=== PATIENT | female | born 1935 | race Caucasian/White ===

== ENCOUNTER → 2024-05-07 | Outpatient (CLI) | payer OTHER, MEDICAID, SELFPAY ==
[2024-05-07 12:38] LABS: Collection Type, Urine Clean Catch
[2024-05-07 13:26] LABS: Bacteria,Urine 1+; Bilirubin,Urine Negative (Negative); Blood,Urine Negative (Negative); Budding Yeast,Urine Present; Clarity,Urine Clear (Clear/Hazy); Color,Urine Lt-Yellow (Lt Yel-Yel); Glucose, Urine Negative (Negative); Hyphae Yeast Present; Ketones,Urine Negative (Negative); Leukocyte Esterase,Urine Positive (Negative); Nitrite,Urine Negative (Negative); PH,Urine 6.5 (5.0-7.0); Protein,Urine 2+ (Neg - Trace); RBC,Urine 4 /hpf (0-3); Specific Gravity,Urine 1.007 (1.001-1.035); Squamous Epithelial Cell,Urine 8 /hpf (0-5); Transitional Epi Cells,Urine < 1 /hpf (0-5); Urobilinogen,Urine Negative mg/dL (0.0-1.0); WBC,Urine 2 /hpf (0-5)
== END | disposition home or self-care (01) ==
LOC: SLDO 12:27
PROVIDERS: PCP Family Medicine; Referring Provider Family Medicine; Visit Provider Family Medicine
DX: R30.0 Dysuria (principal)
CPT/HCPCS: 81001; 87086

== ENCOUNTER → 2024-06-16 | Outpatient (CLI) | payer OTHER, MEDICAID, SELFPAY ==
[2024-06-16 12:06] LABS: Collection Type, Urine Clean Catch
[2024-06-16 13:28] LABS: Bilirubin,Urine Negative (Negative); Blood,Urine 1+ (Negative); Clarity,Urine Clear (Clear/Hazy); Color,Urine Lt-Yellow (Lt Yel-Yel); Glucose, Urine Negative (Negative); Ketones,Urine Negative (Negative); Leukocyte Esterase,Urine Positive (Negative); Nitrite,Urine Negative (Negative); PH,Urine 6.5 (5.0-7.0); Protein,Urine 3+ (Neg - Trace); RBC,Urine 6 /hpf (0-3); Specific Gravity,Urine 1.012 (1.001-1.035); Squamous Epithelial Cell,Urine 2 /hpf (0-5); Urobilinogen,Urine Negative mg/dL (0.0-1.0); WBC,Urine 20 /hpf (0-5)
== END | disposition home or self-care (01) ==
LOC: SLDO 11:56
PROVIDERS: Referring Provider Family Medicine; Visit Provider Family Medicine
DX: N30.00 Acute cystitis without hematuria (principal)
CPT/HCPCS: 81001; 87086

== ENCOUNTER 2024-06-17 11:13 | Emergency (ER) | payer OTHER, SELFPAY ==
--- NOTE | 2024-06-17 12:17 | XR_ITS ---
Examination: CT brain head without contrast. 2-D sagittal coronal reconstructions Date and time of exam:June 17, 2024 1238 hours INDICATIONS: Patient fell today with injury to the head, head pain neck pain CTDI: vol (mGy):47.1 DLP: (mGycm):962 Technique: Multiple CT axial sections of the brain have been obtained, 5 mm slice thickness. Contrast has not been administered. 2-D sagittal, coronal reconstructions have been obtained Low dose protocols were performed. One or more of the following dose reduction techniques were used; automated exposure control, adjustment of the mA and/or KV according to patient size, use of iterative reconstruction technique. Findings: No significant ventricular enlargement. 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 No mass effect or midline shift Basal cisterns are not remarkable. Fourth ventricle is midline. Cranial vault intact. Impression: Negative for acute hemorrhage, mass effect or midline shift
--- NOTE | 2024-06-17 12:17 | XR_ITS ---
Examination: CT cervical spine without contrast 2-D sagittal reconstructions 2-D coronal reconstructions 3-D reconstructions. Exam date and time:June 17, 2024 1238 hours INDICATIONS: Patient fell today with injury to the neck, neck pain CTDI:vol (mGy) 7.79 DLP: (mGycm) 168 Technique: Multiple 2 mm axial sections of the cervical spine have been obtained. The coronal and sagittal reconstructions have been obtained. 3-D reconstructions have been obtained. Low dose protocols were performed. One or more of the following dose reduction techniques were used; automated exposure control, adjustment of the mA and/or KV according to patient size, use of iterative reconstruction technique. Findings: Axial sections demonstrate intact base of the skull. C1 exhibit satisfactory relationship to the odontoid. No acute cervical vertebral body fracture seen. Alignment posterior spinous processes satisfactory. Impression: No acute cervical fracture.
--- NOTE | 2024-06-17 12:18 | XR_ITS ---
Examination: CT chest, without intravenous contrast. Sagittal and coronal 2-D reconstructions. Exam date and time: June 17, 2019 0545 hours Comparison December 05, 2017 INDICATIONS: Patient fell today with into the left chest, left-sided rib pain CTDI:vol (mGy) 14.3 DLP: (mGycm) 504 Technique: Multiple 3.0 mm axial sections of the chest to been obtained. Bone and lung density settings are obtained. Sagittal and coronal 2-D reconstructions have been obtained. Low dose protocols were performed. One or more of the following dose reduction techniques were used; automated exposure control, adjustment of the mA and/or KV according to patient size, use of iterative reconstruction technique. Findings: Thoracic aortic calcification Aneurysmal dilatation ascending thoracic aorta, AP dimension 5.6 cm Pulmonary artery segments are not enlarged Trace pericardial fluid including directly anterior to the ascending thoracic aorta No pneumothorax Atelectasis versus pneumonia right base with small right pleural effusion The manubrium and the body the sternum are intact Severe osteopenia No acute thoracic fracture Ribs appear intact 18 mm bleb in the posterior right lung No visualized liver or splenic laceration Abnormal partially cystic mass left kidney with dilatation of the upper pole calyces, please see the CT abdomen pelvis study March 26, 2024 IMPRESSION: Aneurysmal dilatation ascending thoracic aorta, AP dimension 5.6 cm Trace pericardial fluid including fluid directly anterior and contiguous with the ascending thoracic aorta Recommend repeating this study, CTA post contrast follow-up to document stability of the ascending thoracic aorta
--- NOTE | 2024-06-17 12:18 | EKG_ITS ---
[facility] Test Date: 2024-06-17 Pat Name: MICHAEL HUITRON Department: Room: - Gender: Female [employer] Operator: : [id number] Requested By: Shawn Mendez Order Number: [id number] Reading MD: Shawn Mendez Measurements Intervals [place] Rate: 58 P: 40 MN: 192 QRS: -7 QRSD: 89 T: 25 QT: 413 QTc: 407 Interpretive Statements SINUS BRADYCARDIA Compared to ECG 03/26/2024 10:35:59 Sinus rhythm no longer present Left ventricular hypertrophy no longer present Myocardial infarct finding no longer present /store/S0/[id number]/ecg/[id number].pdf
--- NOTE | 2024-06-17 12:19 | EDNOTE_ITS ---
ED General RME/HPI General Chief complaint: Back Pain/Injury Stated complaint: keeps falling back pain, right rib pain Time Seen by Provider: 06/17/24 12:16 Arrival date/time: 06/17/24 11:13 RME / HPI RME / HPI narrative: 89-year-old female patient with significant history of hypertension, hypothyroidism, was brought in by family for evaluation regarding fall. Patient sustained a fall about 2 days ago hit her head and neck, resulting to pain description dull ache, severity moderate. Patient also complained of pain to the left posterior rib cage. Severity mild. Since then patient was noted to be having on and off confusion. Patient told me that her left lower leg is weaker than the right lower leg. Patient denies any other complaints. No medications taken prior travel. Patient's not take any blood thinner. Related Data Home Medications ?Medication ?Instructions ?Recorded ?Confirmed levothyroxine 100 mcg capsule 88 mcg PO QDAY #0 tabs 0 09/20/15 03/26/24 lisinopril 40 mg tablet 40 ml PO QDAY #0 tabs 03/26/24 lorazepam 1 mg tablet 5 mg PO QHS PRN Anxiety 10/1903/26/24 amlodipine 10 mg tablet 10 mg PO DAILY 03/26/2412/10 gabapentin 400 mg capsule 400 mg PO DAILY 03/26/2412/10 hydroxyzine HCl 25 mg tablet 25 mg PO TID 03/26/2412/10 ondansetron HCl 4 mg tablet 4 mg PO DAILY 03/26/2412/10 Previous Rx's ?Medication ?Instructions ?Recorded peg 3350-electrolytes 236 240 ml PO Q10M #4,000 mL 12/10 gram-22.74 gram-6.74 gram-5.86 gram solution (Golytely) sodium chloride 1,000 mg soluble 1,000 mg PO QDAY #10 tabs 03/26/24 tablet cefuroxime axetil 500 mg tablet 500 mg PO BID #14 tabs 06/17/24 tramadol 37.5 mg-acetaminophen 325 1 tab PO Q8H PRN pa in 5 days #20 06/17/24 mg tablet tabs Allergies Allergy/AdvReac Type Severity Reaction Status Date / Time codeine Allergy Mild MAKES ME Verified 06/17/24 11:18 FEEL SICK ITCH Review of Systems Review of Systems Narrative Review of Systems: Review of system reviewed and within normal limits except mentioned in HPI ED Exam Narrative Physical exam: VITAL SIGNS: Reviewed. GENERAL APPEARANCE: Alert and interactive, follows commands, no acute distress, HEAD AND FACE: Non-traumatic. ENT: PERRL, pink conjunctivitis, eyelid no trauma, Mucous membrane moist. NECK: Supple, nontender, no nuchal rigidity. CHEST: No tenderness, no crepitus, no paradoxical movement, no retractions. LUNGS: Clear, well ventilated, symmetric, no rales, no wheezing, no ronchi, no stridor, good breath sounds bilaterally. HEART: Regular rate, regular rhythm, no murmur, no gallops. ABDOMEN: Soft, positive bowel sounds, nondistended, no guarding, nontender, no rebound, no masses, RECTAL: Deferred. GENITAL: Deferred. NEUROLOGICAL: Gross motor function intact sensory function intact, Appropriate for age. MUSCULOSKELETAL: low back nontender, full range of motion. EXTREMITIES: Nontender, full range of motion. SKIN: Color pink, dry, no rash, no lacerations, no abrasions, no contusions. LYMPHATICS: Deferred. Course Quality Measures none Orders Category Date Time Status EKG (ED ONLY) *Do not use* NOW Care 06/17/24 12:[address] cervical spine wo con Stat Exams 06/17/24 12:[address] chest wo con Stat Exams 06/17/24 12:[address] head/brain wo con Stat Exams 06/17/24 12:17 Completed EKG (ED Only) Stat Exams 06/17/24 12:18 Draft CBC [CBC] Stat Lab 06/17/24 13:08 Completed CMP [Comprehensive Metabolic Panel] Stat Lab 06/17/24 13:08 Completed PTT [Partial Thromboplastin Time] Stat Lab 06/17/24 13:08 Completed Troponin I Stat Lab 06/17/24 13:08 Completed Troponin I Stat Lab 06/17/24 17:06 Completed UA, C/S IF [Urinalysis, C/S if Indicated] Stat Lab 06/17/24 13:20 Completed HYDROcodone*/APAP 5/325 [[place] 5/325] Med 06/17/24 18:06 Discontinued 1 tab PO X1 ONE cefTRIAXone [Rocephin] 1,000 mg Med 06/17/24 16:50 Discontinued Lidocaine 1% 20 ml [Xylocaine 1% 20 ML] 2.1 ml IM X1 Vital Signs Vital signs: Vital Signs Temperature 97.5 F 06/17/24 12:20 Pulse Rate 58 L 06/17/24 12:20 Respiratory Rate 18 06/17/24 12:20 Blood Pressure 121/53 L 06/17/24 12:20 Pulse Oximetry (%) 95 06/17/24 12:20 Oxygen Delivery Method Room Air 06/17/24 12:20 [facility] Patient data External records reviewed:: None Clinical information provided by:: patient Social determinants that could affect healthcare access:: none Patient has the following chronic illnesses:: Hypertension How is presenting disease/condition affected by chronic disease/condition?: u neffected by Evaluation data The following diagnostics were reviewed and interpreted by me:: lab results, radiology exam(s) and EKG tracing(s) Lab and/or radiology exams considered but not ordered:: None Interpretation Summary: EKG as interpreted by me showed sinus pericardia, ventricular rate of 58 bpm, no ST segment ovation depression noted. The rest of the results see [facility] Medications Medications considered but not ordered:: None Medication administrations:: Medication Administration History Discontinued Medications Hydrocodone Bitart/Acetaminophen (Hydrocodone/Apap 5/325 Tablet) 1 tab PO X1 ONE Stop: 06/17/24 18:07 Ceftriaxone Sodium 1,000 mg/ (Lidocaine HCl 2.1 ml) 0 mg IM X1 ONE Stop: 06/17/24 16:51 Last Admin: 06/17/24 17:16 Dose: 1,000 mg Documented By: Costilla, ceftriaxone IM Consultations Consultation(s) initiated? (list below): No Consultation #1 (Physician, Specialty, Details): None Diagnosis Differential Diagnosis ED Complaint MDM: Rib pain, UTI, fall, thoracic aneurysm Most likely diagnosis given after review of the tests above:: Rib pain, UTI, fall Admission Indicated Admission indicated?: not indicated Explain why admission is indicated or not indicated:: Stable Admission Request Was there a request for admission?: No Disposition Plan Disposition Plan: Discharge Discharge Attestation Discharge Attestation: The patient and all family members were given an opportunity to ask questions and understood the discharge instructions. Discharge instructions specifically effects, indications for sooner follow up or return to the emergency department, and the expected course of current diagnosis. Patient condition: Stable Medical Decision Making MDM Narrative MDM Narrative: 89-year-old female patient with significant history of hypertension, hypothyroidism, was brought in by family for evaluation regarding fall. Patient sustained a fall about 2 days ago hit her head and neck, resulting to pain description dull ache, severity moderate. Patient also complained of pain to the left posterior rib cage. Severity mild. Since then patient was noted to be having on and off confusion. Patient told me that her left lower leg is weaker than the right lower leg. Patient denies any other complaints. No medications taken prior travel. Patient's not take any blood thinner. Patient's workup is significant for UTI. CBC is significant for leukocytosis.. Creatinine was noted to be 1.7, troponin initially was noted to be 0.098, after 3 hours went down to 0.090. CT scan of the head came back unremarkable. CT scan of the neck came back unremarkable. CT scan of the chest showed Aneurysmal dilatation ascending thoracic aorta, AP dimension 5.6 cm Trace pericardial fluid including fluid directly anterior and contiguous with the ascending thoracic aorta Recommend repeating this study, CTA post contrast follow-up to document stability of the ascending thoracic aorta Results discussed with the family and patient. Told me that she knows about her aneurysm already and been seen by Dr. Morales vascular surgeon. She had incoming appointment next month. Differential Diagnosis Differential Diagnosis: Rib pain, UTI, fall, thoracic aneurysm Lab Data 06/17/24 13:08 06/17/24 13:08 Labs: Lab Results 06/17/24 06/17/24 06/17/24 Range/Units 13:08 13:20 17:06 WBC 14.0 H (3.6-11.0) Thou/mm3 RBC 5.08 (4.00-5.20) Miln/mm3 Hgb 13.9 (12.0-16.0) g/dL Hct 42.2 (36.0-46.0) % MCV 83 (80-100) fL MCH 27.4 (25.0-35.0) pg MCHC 32.9 (31.0-37.0) g/dl RDW Std Deviation 45.5 (36.4-46.3) fL Plt Count 164 (140-440) Thou/mm3 Neut % (Auto) 81 H (37-80) % Lymph % (Auto) 12 (10-50) % [place] % (Auto) 6 (0-12) % Eos % (Auto) 1 (0-10) % Baso % (Auto) 0 (0-2.5) % Neut # (Auto) 11.3 H (1.8-7.7) Thou/mm3 Lymph # (Auto) 1.7 (1.0-4.8) Thou/mm3 [place] # (Auto) 0.8 (0.0-0.8) Thou/mm3 Eos # (Auto) 0.1 (0.0-0.5) Thou/mm3 Baso # (Auto) 0.0 (0.0-0.2) Thou/mm3 Immature Gran # (Auto) 0.06 H (0.00-0.00) Thou/mm3 Absolute Nucleated RBC 0.00 (0.00-0.00) Thou/mm3 Immature Gran % 0 (0-0) % Nucleated RBC % 0 (0) /100 WBC APTT 30.5 (22.0-36.0) Seconds Sodium 129 L (136-145) mMol/L Potassium 4.0 (3.4-5.1) mMol/L Chloride 100 (98-107) mMol/L Carbon Dioxide 19.0 L (20.0-31.0) mMol/L Anion Gap 10 (7-16) BUN 20 (9-23) mg/dL Creatinine 1.7 H (0.6-1.3) mg/dL Estim Creat Clear Calc 21.3 L (>60) mL/min eGFR 29 L (60 - ) See Note BUN/Creatinine Ratio 12 (12-20) Ratio Glucose 103 (74-106) mg/dL Calculated Osmolality 261 L (275-295) Calcium 9.8 (8.3-10.6) mg/dL Corrected Calcium 9.8 (8.5-10.1) mg/dL Total Bilirubin 0.7 (0.3-1.2) mg/dL AST 13 (0-34) U/L ALT 9 L (10-49) U/L Alkaline Phosphatase 128 H (46-116) U/L Troponin I 0.098 H* 0.090 H* (0.0-0.045) ng/mL Total Protein 7.2 (5.7-8.2) gm/dL Albumin 4.1 (3.4-4.8) gm/dL Globulin 3.1 (2.3-3.5) gm/dL Albumin/Globulin Ratio 1.3 (1.2-2.2) Ur Collection Type Clean Catch Urine Color Yellow (Lt Yel-Yel) Urine Clarity Clear (Clear/Hazy) Urine pH 6.5 (5.0-7.0) Ur Specific [place] 1.017 (1.001-1.035) Urine Protein 3+ A (Neg - Trace) Urine Glucose (UA) Negative (Negative) Urine Ketones Negative (Negative) Urine Blood 1+ A (Negative) Urine Nitrite Negative (Negative) Urine Bilirubin Negative (Negative) Urine Urobilinogen (Auto) Negative (0.0-1.0) mg/dL Ur Leukocyte Esterase Positive (Negative) Urine RBC 8 H (0-3) /hpf Urine WBC 7 H (0-5) /hpf Ur Squamous Epith Cells 1 (0-5) /hpf Urine Bacteria None (None) Ur Culture Indicated? Not Indicated Discharge Plan Plan Patient Disposition: HOME (Self Care) Disposition Comment: stable Prescriptions/Referrals Prescriptions/Med Rec: New cefuroxime axetil 500 mg tablet 500 mg PO BID Qty: 14 0RF tramadol-acetaminophen 37.5-325 mg tablet 1 tab PO Q8H PRN (Reason: pain) 5 Days Qty: 20 0RF No Action lorazepam 1 mg tablet 5 mg PO QHS PRN (Reason: Anxiety) lisinopril 40 MG tablet 40 ml PO QDAY Qty: 0 levothyroxine 100 mcg Capsule 88 mcg PO QDAY Qty: 0 ondansetron HCl 4 mg tablet 4 mg PO DAILY Patient Comments: take 1 tablet by mouth every 8 hours if needed gabapentin 400 mg capsule 400 mg PO DAILY Patient Comments: take 1 capsule by mouth once daily amlodipine 10 mg tablet 10 mg PO DAILY hydroxyzine HCl 25 mg tablet 25 mg PO TID Patient Comments: take 1 tablet by mouth three times a day if needed for itching peg 3350-electrolytes [Golytely] 236-22.74-6.74 -5.86 gram recon soln 240 ml PO Q10M Qty: 4000 0RF Rx Instructions: until fecal effluent is clear sodium chloride 1,000 mg tablet,soluble 1,000 mg PO QDAY Qty: 10 0RF Referrals: Мария Dooley MD [Primary Care Provider] - In 1 week Problem List Clinical Impression: Pain in rib, Fall, UTI (urinary tract infection) Patient/Caregiver Discharge Instructions Discharge Activity: activity as tolerated Education Materials: Understanding Urinary Tract ... Additional Instructions: Thank you for the opportunity for serving you today. You are stable for discharged . You are advised to: Follow-up with your PCP in 1 to 2 days Follow-up with your vascular surgeon, Dr. Morales, regarding your thoracic aneurysm Return to ED for worsening of symptoms Increase oral fluids Take medication as prescribed Print Language: Mongolian Stand Alone Forms: Gina Award Info., Patient Portal Info Letter PA/BRIM POUNCER MACHINE OPERATOR Supervising Physician PA/BRIM POUNCER MACHINE OPERATOR Supervising Physician: MD Anirudh
[2024-06-17 12:20] VITALS: BP 121/53; PULSE 58; RESP 18; TEMP 36.4; O2SAT 95; BMI 31.5
[2024-06-17 13:30] LABS: Collection Type, Urine Clean Catch
[2024-06-17 13:35] LABS: Partial Thromboplastin Time 30.5 Seconds (22.0-36.0)
[2024-06-17 13:42] LABS: Bilirubin,Urine Negative (Negative); Blood,Urine 1+ (Negative); Clarity,Urine Clear (Clear/Hazy); Color,Urine Yellow (Lt Yel-Yel); Culture Indicated,Urine Not Indicated; Glucose, Urine Negative (Negative); Ketones,Urine Negative (Negative); Leukocyte Esterase,Urine Positive (Negative); Nitrite,Urine Negative (Negative); PH,Urine 6.5 (5.0-7.0); Protein,Urine 3+ (Neg - Trace); RBC,Urine 8 /hpf (0-3); Specific Gravity,Urine 1.017 (1.001-1.035); Squamous Epithelial Cell,Urine 1 /hpf (0-5); Urobilinogen,Urine Negative mg/dL (0.0-1.0); WBC,Urine 7 /hpf (0-5)
[2024-06-17 13:48] LABS: Basophils % (Auto) 0 % (0-2.5); Eosinophils # (Auto) 0.1 Thou/mm3 (0.0-0.5); Eosinophils % (Auto) 1 % (0-10); Hematocrit 42.2 % (36.0-46.0); Hemoglobin 13.9 g/dL (12.0-16.0); Immature Granulocytes % (Auto) 0 % (0-0); Immature Granulocytes Auto 0.06 Thou/mm3 (0.00-0.00); Lymphocytes # (Auto) 1.7 Thou/mm3 (1.0-4.8); Lymphocytes % (Auto) 12 % (10-50); Mean Corpuscular HGB Conc 32.9 g/dl (31.0-37.0); Mean Corpuscular Hemoglobin 27.4 pg (25.0-35.0); Mean Corpuscular Volume 83 fL (80-100); Monocytes # (Auto) 0.8 Thou/mm3 (0.0-0.8); Monocytes % (Auto) 6 % (0-12); Neutrophils # (Auto) 11.3 Thou/mm3 (1.8-7.7); Neutrophils % (Auto) 81 % (37-80); Nucleated Red Blood Cell % 0 /100 WBC (0); Platelet Count 164 Thou/mm3 (140-440); RDW Standard Deviation 45.5 fL (36.4-46.3); Red Blood Count 5.08 Miln/mm3 (4.00-5.20)
[2024-06-17 13:50] LABS: Alanine Aminotransferase 9 U/L (10-49); Albumin, Serum 4.1 gm/dL (3.4-4.8); Albumin/Globulin Ratio 1.3 (1.2-2.2); Alkaline Phosphatase 128 U/L (46-116); Anion Gap 10 (7-16); Aspartate Amino Transferase 13 U/L (0-34); BUN/Creatinine Ratio 12 Ratio (12-20); Bilirubin,Total 0.7 mg/dL (0.3-1.2); Blood Urea Nitrogen 20 mg/dL (9-23); Calcium 9.8 mg/dL (8.3-10.6); Calcium (Corrected) 9.8 mg/dL (8.5-10.1); Chloride 100 mMol/L (98-107); Creatinine (Component) 1.7 mg/dL (0.6-1.3); Estimated Creatinine Clearance 21.3 mL/min (>60); Globulin 3.1 gm/dL (2.3-3.5); Glucose 103 mg/dL (74-106); Osmolality,Calculated 261 (275-295); Sodium 129 mMol/L (136-145); Total Protein 7.2 gm/dL (5.7-8.2); eGFR 29 See Note
[2024-06-17 13:54] LABS: Troponin I 0.098 ng/mL (0.0-0.045)
[2024-06-17] MEDS: cefTRIAXone 1,000 MG, LIDOCAINE 1% 20 ML 2.1 ML IM (17:16)
[2024-06-17] MEDS: HYDROcodone/APAP 5/325 TABLET 1 TAB PO (18:33)
== END 2024-06-17 19:02 | disposition home or self-care (01) ==
PROVIDERS: Nurse Practitioner Family; Emergency Provider Emergency Medicine; PCP Family Medicine
DX: N39.0 Urinary tract infection, site not specified (principal); I71.21 Aneurysm of the ascending aorta, without rupture; S19.9XXA Unspecified injury of neck, initial encounter; S09.90XA Unspecified injury of head, initial encounter; R00.1 Bradycardia, unspecified; R07.89 Other chest pain; I10 Essential (primary) hypertension; W19.XXXA Unspecified fall, initial encounter
CPT/HCPCS: 36415; 70450; 71250; 72125; 80053; 81001; 84484; 85025; 85730; 93005; 96372; 99284; J0696; J3490; A9270